=== PATIENT | male | born 1985 | race Caucasian/White ===

== ENCOUNTER → 2022-03-07 08:32 | Outpatient (BNVA) | payer OTHER, SELFPAY | PROVIDERS: Visit Provider Physician Assistant | DX: S56.911D Strain of unspecified muscles, fascia and tendons at forearm level, right arm, subsequent encounter (principal); X50.1XXD Overexertion from prolonged static or awkward postures, subsequent encounter | CPT/HCPCS: 99204 ==

== ENCOUNTER → 2022-03-14 13:46 | Outpatient (BNVA) | payer OTHER, SELFPAY | PROVIDERS: Visit Provider Physician Assistant | DX: S56.911D Strain of unspecified muscles, fascia and tendons at forearm level, right arm, subsequent encounter (principal); X50.1XXD Overexertion from prolonged static or awkward postures, subsequent encounter | CPT/HCPCS: 99213 ==

== ENCOUNTER → 2022-04-04 13:42 | Outpatient (BNVA) | payer OTHER, SELFPAY | PROVIDERS: Visit Provider Physician Assistant | DX: M79.631 Pain in right forearm (principal); S54.01XD Injury of ulnar nerve at forearm level, right arm, subsequent encounter; X50.1XXD Overexertion from prolonged static or awkward postures, subsequent encounter | CPT/HCPCS: 99213 ==